=== PATIENT | female | born 1975 | race Caucasian/White ===

== ENCOUNTER 2024-05-27 10:27 | Emergency (ER) | payer BC, SELFPAY ==
[2024-05-27] VITALS (9 sets, daily range): BP systolic 110–129; BP diastolic 66–79
[2024-05-27] MEDS: NSS 500 IV (12:12)
[2024-05-27 12:20] LABS: % Basophils 0.7 % (0-2); % Eosinophils 0.5 % (0-6); % Immature Granulocytes 0.3 % (0-0.5); % Lymphocytes 25.4 % (20.5-51.1); % Monocytes 6.6 % (1.7-9.3); % Neutrophils 66.5 % (42.2-75.2); Absolute Basophils 0.1 10^3/uL (0-0.2); Absolute Eosinophils 0.1 10^3/uL (0-0.7); Absolute Lymphocytes 2.4 10^3/uL (1.2-3.4); Absolute Monocytes 0.6 10^3/uL (0.1-0.6); Absolute Neutrophils 6.3 10^3/uL (1.4-6.5); Hematocrit 25.2 % (37.0-47.0); Hemoglobin 7.6 g/dL (12.0-16.0); Mean Corp Hgb Conc. 30.2 g/dL (33.0-37.0); Mean Platelet Volume 10.2 fL (7.4-10.4); Nucleated Red Blood Cells % 0 %; Platelet Count 451 10^3/uL (130-400); Red Cell Dist. Width 19.3 % (11.5-14.5); White Blood Cell Count 9.5 10^3/uL (4.8-10.8)
[2024-05-27 12:25] LABS: HCG, Serum Qualitative Screen Negative
[2024-05-27 12:29] LABS: ALT (SGPT) 20 U/L (0-35); AST (SGOT) 18 U/L (14-36); Albumin 4.5 g/dl (3.5-5.0); Alkaline Phosphatase 67 U/L (38-126); Blood Urea Nitrogen 13 mg/dl (7-17); Calcium 9.3 mg/dl (8.4-10.2); Carbon Dioxide 22 mmol/L (22-30); Chloride 107 mmol/L (98-107); Glucose 93 mg/dl (70-99); Sodium 140 mmol/L (135-145); Total Bilirubin 0.4 mg/dl (0.2-1.3); Total Protein 7.3 g/dl (6.3-8.2); eGFR > 60.00
[2024-05-27 12:38] LABS: NT-proBNP 139 pg/ml; Troponin I < 0.012 ng/ml
[2024-05-27 12:42] LABS: Potassium 3.8 mmol/L (3.5-5.1)
--- NOTE | 2024-05-27 12:56 | ED.GENMED ---
History of Present Illness
General
Chief Complaint: Breathing Problem
Source: patient and spouse
Exam Limitations: none
Time Seen by Provider: 05/27/24 11:16
History of Present Illness
History of Present Illness:
Patient with shortness of breath for 2 weeks. Had a course of steroids. No chest pain feels like a throat tightness has been ongoing. Feels like her airway is smaller. No response to steroids
Past History
Past History
ED Past Medical History: Asthma
Review of Systems
Review of Systems
All Other Systems: Not applicable
Constitutional: Denies fever or chills
Cardiac: Denies chest pain or syncope
ABD/GI: Denies bloody stools or black stools
Phy Exam
Physical Exam
Physical Exam:
Physical Exam
General: no apparent distress, not acutely ill
Neck: supple. no meningeal signs. normal psoterior pharynx
Heart: s1/s2 regular rate and rhythm, no murmur. equal radial pulses.
Lungs: Mild hyperventilation but clear lungs.
Abdomen: normal bowel sounds. not tender. no CVAT. Negative rectal. Heme-negative
Neuro: alert and oriented. no focal neurological deficits
Skin: no rash
Psychiatric: well kept. interactive and cooperative
Extremities: no edema. no calf tenderness. negative homans. good distal pulses
Scores
Heart Failure Risk
Heart Failure Risk Score: Not Applicable
Course
Orders/Labs/Results
Orders:
Orders
05/27/24 11:24
IV Insert/Care/Rem.- Treatment PRN
0.9% Sodium Chloride 500 ml [Nss] 500 ml IV BOLUS
Pulse Ox/cont/shift [RESP] Stat
Quantity: 1
05/27/24 11:25
Electrocardiogram (*1) Stat
Reason for Study: Other
Other Reason for Exam: chest pain
CT Chest Pe Study Urgent
Comment:
Reason For Exam: Short of breath
Cardiac Monitoring- Treatment ONCE
EKG- Treatment ONCE
Test Result ONCE
05/27/24 12:06
Complete Blood Count/With Diff Urgent
Comprehensive Metabolic Panel Urgent
Ferritin Urgent
Comment: ADD ON
HCG, Serum Qualitative Screen Urgent
Iron Urgent
Comment: ADD ON
NT-proBNP Urgent
TSH Reflex To Free T4 Urgent
Comment: ADD ON
Total Iron Binding Urgent
Comment: ADD ON
Troponin I Urgent
05/27/24 12:31
Add On- LAB Urgent
Tests Added?: tibc,ferritin,iron
05/27/24 12:48
Add On- LAB Urgent
Tests Added?: tsh reflex t4
05/27/24 13:54
* Blood Bank Products Urgent
Blood Bank Products: *Packed RBC Leuko(PRBC's)
Quantity: 1
Transfuse Today: Yes
Reason: Anemia
IV Insert/Care/Rem.- Treatment PRN
05/27/24 14:20
Type+Screen Urgent
05/27/24 14:50
ABO2 Urgent
BBK Wristband Number:
Associate notified that ABO2 has been ordered: [id number]
Date: 05/27/24
Time: 14:42
Training And Development Rep ID: [id number]
Abnormal Lab Results
05/27/24 05/27/24
12:06 14:20
RBC 4.00 L 10^6/uL
(4.20-5.40)
Hgb 7.6 L g/dL
(12.0-16.0)
Hct 25.2 L %
(37.0-47.0)
MCV 63.0 L fL
(81.0-99.0)
MCH 19.0 L pg
(27.0-31.0)
MCHC 30.2 L g/dL
(33.0-37.0)
RDW 19.3 H %
(11.5-14.5)
Plt Count 451 H 10^3/uL
(130-400)
Iron 24 L ug/dl
(37-170)
% Saturation 5 L %
(20-50)
Ferritin 3.6 L ng/ml
(6.24-137)
Crossmatch IS Only See Detail
05/27/24 12:06
05/27/24 12:06
Vital Signs
Initial and Last Documented VS:
Initial Vital Signs
Temp Pulse Resp BP Pulse Ox
97.6 F 78 16 118/79 100
05/27/24 10:50 05/27/24 10:50 05/27/24 10:50 05/27/24 10:50 05/27/24 10:50
Last Documented Vital Signs
Temp Pulse Resp BP Pulse Ox
98.3 F 81 16 123/78 100
05/27/24 19:04 05/27/24 19:04 05/27/24 19:04 05/27/24 19:04 05/27/24 19:04
*Critical Care Note
Total Time (30-74mins, 75-104mins- exclusive of procedures): Not Applicable
Update Note
Update Note:
Rectal exam is negative. Hemoglobin is 7.6. Not describing any GI bleeding issues denying melena dark stool bloody stool etc. Does have somewhat heavy menses. Last menstrual period was 3 weeks ago. No current bleeding.
Indices are most consistent with a severe iron deficiency anemia. Iron studies were added. Still will get the lateness.
Patient appears relatively symptomatic and the only explanation I can come up with is the anemia. No heart failure highly doubt cardiac no PE lungs are clear. Discussed transfusion versus no transfusion and admission versus outpatient. We will
give her a unit of blood and if she remains stable and feels somewhat improved very reasonable to do outpatient iron and follow-up. Let hematology know for follow-up. Patient is aware of risk benefits of transfusion
ED Attending Note
-
Portions of this chart may have been created with voice recognition software.� Occasional wrong word or��sound alike� substitutions may have occurred due to the inherent limitations of voice recognition software.
Discharge Plan
Departure
Patient Disposition: Home (Routine Discharge)
Patient with high blood pressure during this ER visit?: No
Discharge Problem:
Symptomatic anemia, History of asthma
Instructions: Asthma, Adult ED, Shortness of Breath, Adult ED, Anemia caused by low iron in adults - Discharge instructions
Prescriptions:
New
ferrous sulfate 325 mg (65 mg iron) tablet
325 mg PO BID Qty: 60 0RF
Referrals:
Richelle Melendez MD [Active] - Follow up in 5-7 days
Tonio Barnhart DO [Family Provider] - Follow up in 2-3 days
Activity Restrictions/Additional Instructions:
Call hematology for follow-up
Also you should follow-up with your [facility] physician for your heavy menses
Interventions
Interventions:
*Risk Screen - Suicide Last Done: 05/27/24 11:30
*General Assessment Last Done: 05/27/24 11:30
*Neglect/Abuse Screening Last Done: 05/27/24 11:30
*ED COVID-19 Vaccine History Last Done: 05/27/24 11:30
*Nursing Disposition Last Done: 05/27/24 19:05
ED- Cardiac Assessment Last Done: 05/27/24 11:50
ED- Pulmonary Assessment Last Done: 05/27/24 11:50
Discharge Date and Time
Discharge Date/Time: 05/27/24 19:05
Print Language: KHMER
[2024-05-27 14:23] LABS: Iron 24 ug/dl (37-170)
[2024-05-27 14:32] LABS: Percent Saturation 5 % (20-50); Total Iron Binding Capacity 463 ug/dl (265-497)
[2024-05-27 16:24] LABS: TSH Reflex To Free T4 1.29 uIU/ml (0.47-4.68)
[2024-05-27 16:29] LABS: Ferritin 3.6 ng/ml (6.24-137)
== END 2024-05-27 19:05 | disposition home or self-care (01) ==
LOC: EMR 10:27
PROVIDERS: EMERGENCY PHYSICIAN Emergency Medicine; FAMILY PHYSICIAN Internal Medicine
DX: D64.9 Anemia, unspecified (principal); J45.909 Unspecified asthma, uncomplicated
CPT/HCPCS: 99285; 36430; 96360; 71275; 80053; 82728; 83540; 83550; 83880; 84443; 84484; 84703; 85025; 86850; 86900; 86901; 86920; 93005; P9016; Q9967